=== PATIENT | female | born 1965 ===

== ENCOUNTER 2018-10-08 09:29 | Emergency (ER) | payer OTHER ==
[2018-10-08 09:45] VITALS: BP 130/100
--- NOTE | 2018-10-08 10:13 | UC ---
Elbow Pain - HPI Summary HPI Summary: 53 yo female presents with RIGHT elbow pain. She tells me that yesterday she fell on the ice and landed on her right arm/elbow. Has had mild pain and bruising here with increased swelling today. She is right handed and does a lot of moving pt's at work. Denies numbness or tingling - History of Current Complaint Chief Complaint: UCUpperExtremity Stated Complaint: R ELBOW INJURY WC Time Seen by Provider: 10/08/18 10:13 Hx Obtained From: Patient Severity Initially: Mild Severity Currently: Moderate Pain Intensity: 6 Pain Scale Used: 0-10 Numeric - Allergies/Home Medications Allergies/Adverse Reactions: Allergies Allergy/AdvReac Type Severity Reaction Status Date / Time citalopram [From Celexa] Allergy heart Verified 10/08/18 09:45 palpitations Home Medications: Home Medications NK [No Home Medications Reported] 10/08/18 [History Confirmed 10/08/18] PMH/Surg Hx/FS Hx/Imm Hx - Additional Past Medical History Additional PMH: None - Family History Known Family History: Positive: None - Social History Occupation: Employed Full-time Lives: With Family Alcohol Use: Rare Substance Use Type: None Smoking Status (MU): Heavy Every Day Tobacco Smoker Review of Systems All Other Systems Reviewed And Are Negative: Yes Constitutional: Positive: Negative Skin: Positive: Negative Respiratory: Positive: Negative Cardiovascular: Positive: Negative Neurovascular: Positive: Negative Musculoskeletal: Positive: Other: - Right elbow pain and swelling Neurological: Positive: Negative Psychological: Positive: Negative Physical Exam - Summary Physical Exam Summary: GENERAL: NAD. WDWN. No pain distress. SKIN: No rashes, sores, lesions, or open wounds. CHEST: No accessory muscle use. Breathing comfortably and in no distress. CV: Pulses intact radial and ulnar. Cap refill <2seconds MSK: Mild edema and TTP at olecranon. FROM without pain including pronation and supination. 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 NEURO: Alert. Sensations intact hand and all fingers. PSYCH: Age appropriate behavior. Triage Information Reviewed: Yes Vital Signs: Initial Vital Signs Temp 98.5 F 10/08/18 09:41 Pulse 88 10/08/18 09:41 Resp 16 10/08/18 09:41 BP 130/100 10/08/18 09:41 Pulse Ox 100 10/08/18 09:41 Vital Signs Reviewed: Yes Elbow Pain Course/Dx - Course Course Of Treatment: XR: IMPRESSION: SOFT TISSUE SWELLING, NO FRACTURE IS SEEN. Pt advised to RICE and take ibuprofen for discomfort. F/u with Ortho if symptoms do not improve. - Differential Dx/Diagnosis Provider Diagnosis: Contusion of right elbow Discharge - Sign-Out/Discharge Documenting (check all that apply): Patient Departure All imaging exams completed and their final reports reviewed: Yes - Discharge Plan Condition: Stable Disposition: HOME Patient Education Materials: Contusion in Adults (ED) Forms: *Work Release Referrals: No Primary Care Phys,NOPCP [Primary Care Provider] - Albin Newell MD [Medical Doctor] - If Needed Additional Instructions: If you develop a fever, shortness of breath, chest pain, new or worsening symptoms - please call your PCP or go to the ED. Your blood pressure was high at todays visit. Please see your primary provider within 4 weeks for recheck and re-evaluation. Rest, Ice, and elevate your elbow as much as possible. May take ibuprofen 600mg every 6-8 hours as needed for pain If your symptoms do not improve within 7-10 days, please call Orthopedics at the number below to schedule a follow up appointment - Billing Disposition and Condition Condition: STABLE Disposition: Home
== END 2018-10-08 10:55 | disposition home or self-care (01) ==
LOC: UCEAST 09:29
DX: S50.01XA Contusion of right elbow, initial encounter (principal); F17.200 Nicotine dependence, unspecified, uncomplicated; Z88.1 Allergy status to other antibiotic agents; W00.0XXA Fall on same level due to ice and snow, initial encounter; Y92.9 Unspecified place or not applicable
CPT/HCPCS: 99201; G0463